=== PATIENT | female | born 1960 | race Caucasian/White ===

== ENCOUNTER 2016-07-26 22:24 | Inpatient (IN) | payer OTHER ==
[~2016-07-26] VITALS: Ht 172.7 cm; Wt 97.8 kg
[~2016-07-26 22:24] MED LIST: ADDERALL20 MG PO; ADVAIR 250/501 DISK IH; ADVAIR 500/501 DISK IH; ADVAIR HFA120 INHAL1 IH; ALBUTEROL SULF8.5 GM IH; AUGMENTIN875 MG PO; Advair 250/50 Diskus; BENTYL20 MG PO; CARAFATE1 GM PO; CEFUROXIME500 MG PO; CIPROFLOXACIN500 M1 PO; CLONAZEPAM0.5 MG PO; DEPAKOTE250 MG PO; DEPAKOTE500 MG PO; DIVALPROEX SOD250 MG PO; DIVALPROEX SOD500 MG PO; ELAVIL25 MG PO; ELAVIL50 MG PO; GABAPENTIN300 MG PO; HYCODAN SYRUP480 ML PO; IBUPROFEN800 MG PO; KLONOPIN0.5 M1 PO; MOBIC15 MG PO; MORPHINE SULFAT10 M3 PO; MORPHINE SULFAT15 M1 PO; MOTRIN800 MG PO; MS CONTIN,ORAMO15 M1 PO; NEURONTIN300 MG PO; NEURONTIN600 MG PO; NOHOMEMEDS; OMEPRAZOLE40 M1 PO; OXAYDO5 MG PO; OXYBUTYNIN CHLOR5 M1 PO; PERCOCET 5/31 TABLET PO; PREDNISONE20 MG PO; PREDNISONE50 MG PO; PRILOSEC20 MG PO; PRILOSEC40 MG PO; PROAIR HFA8.5 GM IH; PROMETHAZINE HC25 M1 PO; REGLAN10 MG PO; ROXICODONE5 MG PO; SERTRALINE HCL100 MG PO; SERTRALINE HCL25 MG PO; SERTRALINE HCL50 MG PO; TIZANIDINE HCL4 MG PO; ZANAFLEX2 M1 PO; ZANAFLEX4 M1 PO; ZOFRAN ODT4 MG PO; ZOLOFT100 MG PO; ZOLOFT25 MG PO; ZOLOFT50 MG PO
[2016-07-27 01:11] LABS: AMPHETAMINE NEGATIVE (500 ng/mL); BENZODIAZEPINES NEGATIVE (150 ng/mL); COCAINE NEGATIVE (150 ng/mL); METHADONE NEGATIVE (200 ng/mL); METHAMPHETAMINE NEGATIVE (500 ng/mL); OPIATES (MORPHINE) PRESUMPTIVE POSITIVE (100 ng/mL); PHENCYCLIDINE NEGATIVE (25 ng/mL); THC CANNABINOIDS PRESUMPTIVE POSITIVE (50 ng/mL); TRICYCLIC ANTIDEPRESSANTS PRESUMPTIVE POSITIVE (300 ng/mL)
[2016-07-27 01:12] LABS: ADD MEDTOX COMMENT Y; BARBITURATES NEGATIVE (200 ng/mL); INTERNAL CONTROLS VALID? YES; OXYCODONE PRESUMPTIVE POSITIVE (100 ng/mL); PROPOXYPHENE NEGATIVE (300 ng/mL)
[2016-07-27 01:12] LABS: EOSINOPHIL (%) 1.7 % (0-5); EOSINOPHIL COUNT 0.2 K/uL (0-0.3); HEMATOCRIT 33.2 % (36.0-46.0); IMMATURE GRANULOCYTE (%) 0.7 % (0.0-0.7); IMMATURE GRANULOCYTE COUNT 0.6 K/uL; LYMPHOCYTE COUNT 1.6 K/uL (1.0-2.8); MCH 30.7 PG (29.0-34.0); MCHC 30.7 G/DL (30.0-36.0); MEAN PLAT.VOLUME 8.9 uM^3 (9.5-12.4); MONOCYTE (%) 9.9 % (3-12); MONOCYTE COUNT 0.9 K/uL (0-0.8); NEUTROPHIL (%) 69.8 % (45-76); NEUTROPHIL COUNT 6.5 K/uL (1.8-6.4); PLATELET COUNT 339 K/uL (156-360); RBC DIS.WIDTH-CV 14.3 % (11.8-14.6); RBC DIS.WIDTH-SD 49.8 % (39-53); RED BLOOD COUNT 3.32 M/uL (3.80-5.20); WHITE BLOOD COUNT 9.2 K/uL (4.1-10.2)
[2016-07-27 01:24] LABS: CHLORIDE 103 mEq/L (99-109); POTASSIUM 4.3 mEq/L (3.7-5.4); SODIUM 144 mEq/L (136-147)
[2016-07-27 01:27] LABS: GLUCOSE 113 mg/dL (70-99)
[2016-07-27 01:28] LABS: ANION GAP 10 MEQ/L (2-14); TOTAL BILIRUBIN 0.2 mg/dL (0.0-1.0)
[2016-07-27 01:30] LABS: GFR ESTIMATE (CALCULATED) > 59 mL/min/
[2016-07-27 01:31] LABS: ALKALINE PHOSPHATASE 72 IU/L (3-129)
[2016-07-27 01:32] LABS: DIRECT BILIRUBIN 0.1 mg/dL (0.0-0.3); UREA NITROGEN (BUN) 7 mg/dL (9-23)
[2016-07-27 01:34] LABS: SALICYLATE < 5.0 MG/DL (15-30)
[2016-07-27 04:19] LABS: BASE EXCESS 8.8 mEq/L (-3 to +3); BICARBONATE 37.5 mEq/L (22-26); COMMENTS - BLOOD GASES C+A+; DEVICE NC; METHEMOGLOBIN 1.2 % (0-1.5); O2 FLOW 4 L/MIN; PCO2 78 mm Hg (35-45); PO2 73 mm Hg (80-100); SITE RR; pH 7.29 (7.35-7.45)
[2016-07-27 08:49] LABS: BASE EXCESS 8.6 mEq/L (-3 to +3); BICARBONATE 35.3 mEq/L (22-26); CARBOXY HGB 2.2 % (0-5); COMMENTS - BLOOD GASES A+C+; DEVICE NC; METHEMOGLOBIN 1.1 % (0-1.5); O2 FLOW 2 L/MIN; PCO2 61 mm Hg (35-45); PO2 86 mm Hg (80-100); SITE LR; pH 7.37 (7.35-7.45)
[2016-07-27 12:00] VITALS: BP 157/81
[2016-07-27 13:00] VITALS: BP 146/72
[2016-07-27 13:19] LABS: METH RESISTANT S AUREUS PCR POSITIVE (NEGATIVE)
[2016-07-27 13:25] LABS: PROBE CHECK PASS
[2016-07-27 14:00] VITALS: BP 98/50
[2016-07-27 16:00] VITALS: BP 113/62
[2016-07-27 20:00] VITALS: BP 124/66
[2016-07-28] VITALS: BP 132/74
[2016-07-28 04:00] VITALS: BP 138/84
[2016-07-28 06:12] LABS: ALKALINE PHOSPHATASE 61 IU/L (3-129); ANION GAP 11 MEQ/L (2-14); CHLORIDE 105 MEQ/L (99-109); GFR ESTIMATE (CALCULATED) > 59 mL/min/; GLUCOSE 93 mg/dL (70-99); POTASSIUM 4.2 MEQ/L (3.7-5.4); SAMPLE HEMOLYSIS CHECK 0; SAMPLE ICTERIC CHECK 0; SAMPLE LIPEMIA CHECK 0; SODIUM 146 MEQ/L (136-147); TOTAL BILIRUBIN 0.2 MG/DL (0.0-1.0); UREA NITROGEN (BUN) 12 mg/dL (9-23)
[2016-07-28 06:14] LABS: HEMATOCRIT 29.8 % (36.0-46.0); MCH 30.1 PG (29.0-34.0); MCHC 30.5 G/DL (30.0-36.0); MCV 98.7 FL (83-99); MEAN PLAT.VOLUME 9.1 uM^3 (9.5-12.4); PLATELET COUNT 324 K/uL (156-360); RBC DIS.WIDTH-CV 14.3 % (11.8-14.6); RBC DIS.WIDTH-SD 50.9 % (39-53); RED BLOOD COUNT 3.02 M/uL (3.80-5.20)
[2016-07-28 06:20] LABS: WHITE BLOOD COUNT 6.2 K/uL (4.1-10.2)
[2016-07-28 08:00] VITALS: BP 156/94
[2016-07-28 12:00] VITALS: BP 176/99
[2016-07-28 14:00] VITALS: BP 150/80
[2016-07-28] MEDS ORDERED: ADVAIR 250/501 DISK IH (15:11)
[2016-07-28] MEDS ORDERED: TIZANIDINE HCL4 MG PO (15:12)
[2016-07-28] MEDS ORDERED: OXYBUTYNIN CHLOR5 M1 PO (15:12)
[2016-07-28] MEDS ORDERED: OXYCODONE HCL5 MG PO (15:13)
[2016-07-28] MEDS ORDERED: MOTRIN600 MG PO (15:18)
[2016-07-28] MEDS ORDERED: DEPAKOTE ER250 MG PO (15:21)
[2016-07-28] MEDS ORDERED: DEPAKOTE ER500 MG PO (15:22)
[2016-07-28] MEDS ORDERED: SERTRALINE HCL100 MG PO (15:22)
[2016-07-28] MEDS ORDERED: MS CONTIN,ORAMO15 M1 PO (15:22)
== END 2016-07-28 17:25 | disposition home or self-care (01) | DRG 918 ==
LOC: EME → EDBD 22:24 → EDOF 07-27 08:29 → 4WEST 07-27 08:29
PROVIDERS: Emergency Medicine; Hospitalist; Internal Medicine Nephrology
DX: T40.601A Poisoning by unspecified narcotics, accidental (unintentional), initial encounter (principal); E87.2 Acidosis; R41.82 Altered mental status, unspecified; F11.10 Opioid abuse, uncomplicated; J44.9 Chronic obstructive pulmonary disease, unspecified; G89.29 Other chronic pain; F32.9 Major depressive disorder, single episode, unspecified
CPT/HCPCS: 36600; 70450; 71010; 80048; 80053; 80076; 82803; 83605; 84999; 85025; 85027; 87040; 87641; 93005; 94640; 94640 76; 94644; 99281; 99285; G0480; J1644; J2310; J2405; J7030; J7040; J7050

== ENCOUNTER 2018-02-11 16:10 | Emergency (ER) | payer OTHER ==
[~2018-02-11] VITALS: Ht 172.7 cm; Wt 91.5 kg
[~2018-02-11 16:10] MED LIST changes: +DEPAKOTE ER250 MG PO; +DEPAKOTE ER500 MG PO; +MOTRIN600 MG PO; +OXYCODONE HCL5 MG PO
[2018-02-11 17:05] LABS: HEMATOCRIT 41.8 % (36.0-46.0); HEMOGLOBIN 13.7 G/DL (11.9-15.5); MCH 30.2 PG (29.0-34.0); MCHC 32.8 G/DL (30.0-36.0); MCV 92.1 FL (83-99); PLATELET COUNT 275 K/uL (156-360); RBC DIS.WIDTH-CV 12.9 % (11.8-14.6); RBC DIS.WIDTH-SD 43.7 % (39-53); RED BLOOD COUNT 4.54 M/uL (3.80-5.20); WHITE BLOOD COUNT 6.7 K/uL (4.1-10.2)
[2018-02-11 17:49] LABS: ALBUMIN 4.5 g/dL (3.2-4.8); CHLORIDE 103 mEq/L (99-109); POTASSIUM 2.9 mEq/L (3.7-5.4); SODIUM 146 mEq/L (136-147)
[2018-02-11 17:52] LABS: GLUCOSE 154 mg/dL (70-99); TOTAL PROTEIN 7.7 g/dL (6.4-8.3)
[2018-02-11 17:53] LABS: TOTAL BILIRUBIN 0.4 mg/dL (0.0-1.0)
[2018-02-11 17:55] LABS: ALKALINE PHOSPHATASE 94 IU/L (3-129); CREATININE 0.8 mg/dL (0.6-1.3); GFR ESTIMATE (CALCULATED) > 59 mL/min/
[2018-02-11 17:56] LABS: UREA NITROGEN (BUN) 10 mg/dL (9-23)
[2018-02-11 17:57] LABS: AST (GOT) 41 IU/L (2-34)
[2018-02-11 17:58] LABS: ALT (GPT) 31 IU/L (3-49)
[2018-02-11 17:59] LABS: LIPASE 22 U/L (1.0-51.0)
[2018-02-11 19:25] VITALS: BP 161/80
== END 2018-02-11 19:28 | disposition left against medical advice (07) ==
LOC: EME 16:10
PROVIDERS: Nurse Practitioner Family
DX: R11.2 Nausea with vomiting, unspecified (principal); R19.7 Diarrhea, unspecified; E87.6 Hypokalemia; R10.817 Generalized abdominal tenderness; R53.1 Weakness; Z85.42 Personal history of malignant neoplasm of other parts of uterus; Z90.710 Acquired absence of both cervix and uterus; Z90.721 Acquired absence of ovaries, unilateral; J44.9 Chronic obstructive pulmonary disease, unspecified; M79.7 Fibromyalgia; G89.29 Other chronic pain; Z87.891 Personal history of nicotine dependence; Z53.29 Procedure and treatment not carried out because of patient's decision for other reasons
CPT/HCPCS: 80053; 81003; 83690; 85027; 87493; 93005; 99281; 99285; J1630; J2405; J7030

== ENCOUNTER 2018-02-16 06:11 | Inpatient (IN) | payer OTHER ==
[~2018-02-16] VITALS: Ht 172.7 cm; Wt 91.5 kg
[2018-02-16 06:41] LABS: HEMATOCRIT 41.9 % (36.0-46.0); HEMOGLOBIN 14.2 G/DL (11.9-15.5); MCHC 33.9 G/DL (30.0-36.0); MCV 88.6 FL (83-99); PLATELET COUNT 231 K/uL (156-360); RBC DIS.WIDTH-CV 12.5 % (11.8-14.6); RBC DIS.WIDTH-SD 40.9 % (39-53); RED BLOOD COUNT 4.73 M/uL (3.80-5.20); WHITE BLOOD COUNT 12.9 K/uL (4.1-10.2)
[2018-02-16 07:17] LABS: CHLORIDE 93 MEQ/L (99-109); CREATININE 1.5 MG/DL (0.6-1.3); GFR ESTIMATE (CALCULATED) 38 mL/min/; GLUCOSE 193 mg/dL (70-99); POTASSIUM 2.7 MEQ/L (3.7-5.4); SERUM ETHYL ALCOHOL < 10 mg/dL; SODIUM 136 MEQ/L (136-147); UREA NITROGEN (BUN) 23 mg/dL (9-23)
[2018-02-16 10:11] LABS: CHLORIDE 100 mEq/L (99-109); POTASSIUM 3.1 mEq/L (3.7-5.4); SODIUM 140 mEq/L (136-147)
[2018-02-16 10:13] LABS: GLUCOSE 138 mg/dL (70-99)
[2018-02-16 10:16] LABS: CREATININE 1.3 mg/dL (0.6-1.3); GFR ESTIMATE (CALCULATED) 45 mL/min/
[2018-02-16 10:17] LABS: UREA NITROGEN (BUN) 20 mg/dL (9-23)
[2018-02-16 12:22] LABS: APPEARANCE SL.HAZY ((CLEAR)); BILIRUBIN NEGATIVE; BLOOD SMALL; COLOR YELLOW ((YELLOW)); GLUCOSE (STRIP) NEGATIVE; KETONES NEGATIVE; LEUKOCYTES TRACE; NITRITE NEGATIVE; PROTEIN (STRIP) 30; SPECIFIC GRAVITY 1.014 (1.000-1.030); UROBILINOGEN 0.2 MG/DL (0.2-1.0)
[2018-02-16 12:27] LABS: BACTERIA RARE /HPF; EPITHELIAL CELLS 1+ /HPF; HYALINE CASTS 0-5 /LPF; MUCUS TRACE /LPF; RED BLOOD CELLS 0-5 /HPF (0-5); UCUL ADDED? NO; WHITE BLOOD CELLS 0-5 /HPF (0-5)
[2018-02-16 12:33] LABS: AMPHETAMINE NEGATIVE (500 ng/mL); BENZODIAZEPINES NEGATIVE (150 ng/mL); COCAINE PRESUMPTIVE POSITIVE (150 ng/mL); METHADONE NEGATIVE (200 ng/mL); METHAMPHETAMINE NEGATIVE (500 ng/mL); OPIATES (MORPHINE) NEGATIVE (100 ng/mL); PHENCYCLIDINE NEGATIVE (25 ng/mL); THC CANNABINOIDS PRESUMPTIVE POSITIVE (50 ng/mL); TRICYCLIC ANTIDEPRESSANTS PRESUMPTIVE POSITIVE (300 ng/mL)
[2018-02-16 12:34] LABS: BARBITURATES NEGATIVE (200 ng/mL); BUPRENORPHINE NEGATIVE (10 ng/mL); OXYCODONE NEGATIVE (100 ng/mL); PROPOXYPHENE NEGATIVE (300 ng/mL)
[2018-02-16] MEDS ORDERED: VENTOLIN HFA18 GM IH (13:14)
[2018-02-16] MEDS ORDERED: OMEPRAZOLE40 M1 PO (13:14)
[2018-02-16] MEDS ORDERED: MORPHINE SULFAT15 M1 PO (13:15)
[2018-02-16] MEDS ORDERED: OXYCODONE HCL5 MG PO (13:15)
[2018-02-16] MEDS ORDERED: [UNRECOGNIZED DRUG - REMARK] PO (13:15)
[2018-02-16] MEDS ORDERED: SYMBICORT60 INHALAT IH (13:16)
[2018-02-16 14:16] VITALS: BP 130/60
[2018-02-16 14:17] VITALS: BP 130/60
[2018-02-16] MEDS ORDERED: PROZAC20 MG PO (14:46)
[2018-02-16] MEDS ORDERED: ABILIFY5 MG PO (14:47)
[2018-02-17 07:30] VITALS: BP 91/54
[2018-02-17 17:20] VITALS: BP 166/97
[2018-02-18 08:05] VITALS: BP 158/72
[2018-02-18] MEDS ORDERED: ARIPIPRAZOLE10 MG PO (12:30)
[2018-02-18] MEDS ORDERED: ZOLPIDEM TARTRAT5 MG PO (12:30)
== END 2018-02-18 13:03 | disposition home or self-care (01) | DRG 885 ==
LOC: EME → EDBD 06:11 → EME 06:11 → 1WEST 11:21 → EDOF 11:21 → ENRESERV 11:58 → 1WEST 14:03
PROVIDERS: Emergency Medicine
DX: F31.32 Bipolar disorder, current episode depressed, moderate (principal); R45.851 Suicidal ideations; T43.596A Underdosing of other antipsychotics and neuroleptics, initial encounter; Z91.14 Patient's other noncompliance with medication regimen; F14.10 Cocaine abuse, uncomplicated; F12.10 Cannabis abuse, uncomplicated; E87.6 Hypokalemia; N28.9 Disorder of kidney and ureter, unspecified; Z59.0 Homelessness; F41.9 Anxiety disorder, unspecified; G89.29 Other chronic pain; M54.9 Dorsalgia, unspecified; M79.7 Fibromyalgia; G43.909 Migraine, unspecified, not intractable, without status migrainosus; J44.9 Chronic obstructive pulmonary disease, unspecified; K21.9 Gastro-esophageal reflux disease without esophagitis; Z85.42 Personal history of malignant neoplasm of other parts of uterus; Z87.891 Personal history of nicotine dependence
CPT/HCPCS: 80048; 80048 91; 81003; 84132; 84999; 85027; 90837; 94640; 94799; 99281; 99285; G0480; J7030; Q0177